=== PATIENT | female | born 1995 | race Caucasian/White ===

== ENCOUNTER 2022-11-13 08:08 | Outpatient (CLI) | payer OTHER ==
[2022-11-13 08:59] LABS: HCT - HEMATOCRIT 42.9 % (37.0-47.0); MEAN CORPUSCULAR HEMOGLOBIN 29.9 pg (27.0-31.0); MEAN CORPUSCULAR HGB CONC 32.6 g/dL (32.0-36.0); MEAN CORPUSCULAR VOLUME 91.5 fL (81.0-99.0); MEAN PLATELET VOLUME 12.5 fL (7.9-10.8); RED BLOOD COUNT 4.69 10^6/uL (4.20-5.40); RED CELL DISTRIBUTION WIDTH 13.2 % (12.0-15.0); WHITE BLOOD COUNT 8.3 x10^3/uL (4.8-10.8)
[2022-11-13 09:45] LABS: THYROID STIMULATING HORMONE 1.73 uIU/mL (0.34-5.60)
[2022-11-13 09:50] LABS: FERRITIN 19.7 ng/mL (11.0-306.8); FREE T4 (FREE THYROXINE) 0.87 ng/dL (0.58-1.64)
[2022-11-13 09:52] LABS: PROLACTIN 20.68 ng/mL
[2022-11-13 10:12] LABS: FOLLICLE STIMULATING HORMONE 5.27 mIU/mL
[2022-11-13 10:13] LABS: LUTEINIZING HORMONE 3.69 mIU/mL
[2022-11-13 21:19] LABS: ESTIMATED AVERAGE GLUCOSE 103 mg/dL (70-100); HEMOGLOBIN A1c% 5.2 % (4.27-6.07)
[2022-11-14 22:07] LABS: ESTRADIOL 25.9 pg/mL (.); PROGESTERONE 0.5 ng/mL (.)
[2022-11-16 14:08] LABS: FREE TESTOSTERONE(DIRECT) 9.1 pg/mL (0.0-4.2)
== END 2022-11-13 08:09 | disposition home or self-care (01) ==
LOC: LAB 08:08
PROVIDERS: ATTEND Nurse Practitioner
DX: L65.9 Nonscarring hair loss, unspecified (principal); Z71.89 Other specified counseling; Z83.3 Family history of diabetes mellitus
CPT/HCPCS: 36415; 82397; 82626; 82670; 82728; 83001; 83002; 83036; 83498; 84143; 84144; 84146; 84270; 84402; 84403; 84439; 84443; 85027

== ENCOUNTER 2022-11-22 16:17 | Outpatient (CLI) | payer OTHER ==
--- NOTE | 2022-11-23 10:13 | Ultrasound Report ---
PROCEDURE: Pelvic w/Transvaginal INDICATIONS: PELVIC PAIN TECHNIQUE: Real-time scanning was performed of the pelvic organs, with image documentation. Additional endovagi nal scanning was necessary due to incomplete visualization of the adnexal and endometrial structures by transabdominal scanning. COMPARISON: None. FINDINGS: Uterus: Uterus is anteverted and normal in size at 6.5 x 2.8 x 4.9 cm. The myometrium is homogeneou s. The endometrium measures 7.4 mm in combined thickness. Ovaries: The right ovary measures 2.4 x 1.2 x 1.3 cm, with a calculated ovarian volume of 2 cc. The left ovary measures 2.9 x 1.5 x 2.7 cm, with a calculated ovarian volume of 5.9 cc. The ovaries hav e a normal sonographic appearance. Less than 12 follicles can be seen in each ovary. No adnexal mas ses are seen. No cystic lesions measuring greater than 3 cm. Other: No pathologic free abdominal or pelvic fluid. IMPRESSION: Unremarkable pelvic ultrasound. Reviewed by: Bandar Bartlett on 11/23/2022 10:12 AM PDT Approved by: Bandar Bartlett on 11/23/2022 10:12 AM PDT Station ID: [id number]
== END 2022-11-22 16:18 | disposition home or self-care (01) ==
LOC: DI 16:17
PROVIDERS: ATTEND Nurse Practitioner
DX: R10.2 Pelvic and perineal pain (principal)

== ENCOUNTER 2022-12-04 10:29 | Outpatient (CLI) | payer OTHER ==
[2022-12-06 02:06] LABS: ESTRADIOL 83.4 pg/mL (.); PROGESTERONE 4.6 ng/mL (.)
== END 2022-12-04 10:30 | disposition home or self-care (01) ==
LOC: LAB 10:29
PROVIDERS: ATTEND Nurse Practitioner
DX: Z71.89 Other specified counseling (principal)
CPT/HCPCS: 36415; 82670; 84144

== ENCOUNTER 2023-05-29 08:00 | Outpatient (CLI) | payer OTHER ==
[2023-05-30 12:37] LABS: BILIRUBIN,URINE NEGATIVE (NEGATIVE); GLUCOSE, URINE (UA) NEGATIVE (NEGATIVE); KETONES,URINE (UA) NEGATIVE (NEGATIVE); LEUKOCYTE ESTERASE, URINE TRACE (NEGATIVE); NITRITE,URINE NEGATIVE (NEGATIVE); OCCULT BLOOD,URINE NEGATIVE (NEGATIVE); PROTEIN,URINE NEGATIVE (NEGATIVE); UROBILINOGEN,URINE 0.2 (NORMAL) E.U./dL (NORMAL)
[2023-05-30 12:49] LABS: BACTERIA,URINE Rare /HPF (None Seen); CLARITY,URINE CLEAR (CLEAR); RBC,URINE None Seen /HPF (0-5); SQUAMOUS EPITHELIAL CELL,UR FEW Squamous (<= Few); WBC,URINE 0-3 /HPF (0-5)
== END 2023-05-29 23:59 | disposition home or self-care (01) ==
LOC: LAB.WC 08:00
PROVIDERS: ATTEND Nurse Practitioner
DX: Z34.90 Encounter for supervision of normal pregnancy, unspecified, unspecified trimester (principal)
CPT/HCPCS: 81001; 87086

== ENCOUNTER 2023-06-07 15:35 | Outpatient (CLI) | payer OTHER ==
[2023-06-07 16:10] LABS: BASOPHILS % (AUTO) 0.3 %; EOSINOPHILS # (AUTO) 0.2 10^3/uL (0.0-0.7); EOSINOPHILS % (AUTO) 1.3 %; HGB - HEMOGLOBIN 13.5 g/dL (12.0-16.0); LYMPHOCYTES # (AUTO) 2.6 10^3/uL (1.5-3.5); LYMPHOCYTES % (AUTO) 21.8 %; MEAN CORPUSCULAR HEMOGLOBIN 29.5 pg (27.0-31.0); MEAN CORPUSCULAR HGB CONC 32.1 g/dL (32.0-36.0); MEAN CORPUSCULAR VOLUME 91.7 fL (81.0-99.0); MONOCYTES # (AUTO) 0.9 10^3/uL (0.0-1.0); MONOCYTES % (AUTO) 7.7 %; NEUTROPHILS # (AUTO) 8.2 10^3/uL (1.5-6.6); NEUTROPHILS % (AUTO) 68.6 %; PLT - PLATELET COUNT 202 10^3/uL (130-450); RED BLOOD COUNT 4.58 10^6/uL (4.20-5.40); RED CELL DISTRIBUTION WIDTH 13.2 % (12.0-15.0)
[2023-06-08 06:10] LABS: RPR Non Reactive (Non Reactive)
[2023-06-08 07:10] LABS: HBsAG SCREEN Negative (Negative)
[2023-06-08 09:10] LABS: VARICELLA-ZOSTER AB IGG <135 index (Immune >165)
[2023-06-08 20:08] LABS: HCV AB Non Reactive (Non Reactive); HIV SCREEN 4TH GENERATION Non Reactive (Non Reactive)
== END 2023-06-07 15:36 | disposition home or self-care (01) ==
LOC: LAB 15:35
PROVIDERS: ATTEND Nurse Practitioner
DX: Z34.90 Encounter for supervision of normal pregnancy, unspecified, unspecified trimester (principal)
CPT/HCPCS: 36415; 85025; 86592; 86762; 86787; 86803; 86850; 86900; 86901; 87340; 87389

== ENCOUNTER 2023-06-14 10:56 | Outpatient (CLI) | payer OTHER ==
--- NOTE | 2023-06-14 16:18 | Ultrasound Report ---
PROCEDURE: OB First Trimester INDICATIONS: POSITIVE TEST OUTSIDE/PRIOR DATING DATA: Last menstrual period (LMP): 04/19/2023. LMP-based estimated date of delivery (JOSE A): 01/24/2024. First dating scan (date and location): 06/14/2023. Estimated date of delivery (JOSE A) from first dating scan: 01/25/2024. TECHNIQUE: Real-time scanning was performed of the fetus and maternal pelvic organs, with image documentation. COMPARISON: None. FINDINGS: Intrauterine gestational sac present. Embryo: [place]-rump length measuring 1.53 cm, 7 weeks 6 days gestational age. Heart rate: 162 bpm. Other: Small perigestational fluid collection measuring at 2.5 x 1.9 x 0.8 cm. Measurement variability in dating: +/- 4 weeks by LMP, +/- 7 days by mean sac diameter (use before 6 weeks gestation if crown-rump length not able to be measured), +/- 5 days by crown-rump length (6-12 weeks gestation). Maternal organs: Ovaries appear within normal limits. Left ovarian cyst or corpus luteum measuring 1 .7 cm. IMPRESSION: 1. August living intrauterine at 7 weeks 6 days based on today's crown-rump length. 2. Small perigestational hemorrhage. Reviewed by: Gilberto Burns MD on 06/14/2023 4:17 PM PST Approved by: Gilberto Burns MD on 06/14/2023 4:17 PM PST Station ID: [id number]
== END 2023-06-14 10:57 | disposition home or self-care (01) ==
LOC: DI 10:56
PROVIDERS: ATTEND Nurse Practitioner
DX: O20.8 Other hemorrhage in early pregnancy (principal); Z3A.01 Less than 8 weeks gestation of pregnancy

== ENCOUNTER 2023-06-23 08:00 | Outpatient (CLI) | payer OTHER ==
[2023-06-23 20:52] LABS: CHLAMYDIA TRACHOMATIS DNA NEGATIVE (NEGATIVE); NEISSERIA GONORRHOEAE DNA NEGATIVE (NEGATIVE); TRICHOMONAS VAGINALIS DNA NEGATIVE (NEGATIVE)
== END 2023-06-23 23:59 | disposition home or self-care (01) ==
LOC: LAB.WC 08:00
PROVIDERS: ATTEND Nurse Practitioner
DX: Z11.3 Encounter for screening for infections with a predominantly sexual mode of transmission (principal)
CPT/HCPCS: 87491; 87591; 87661

== ENCOUNTER 2023-08-18 13:27 | Outpatient (CLI) | payer OTHER ==
[2023-08-22 21:07] LABS: DIA MOM 1.83 (.); DIA VALUE 281.09 pg/mL (.); DSR (BY AGE) 1 IN 805 (.); DSR (SECOND TRIMESTER) 1 IN 1161 (.); GEST. AGE ON COLLECTION DATE 17.3 WEEKS (.); HCG MOM 1.23 (.); HCG VALUE 41312 mIU/mL (.); INSULIN DEP DIABETES No (.); MATERNAL AGE AT EDD 28.7 yr (.); MULTIPLE GESTATION No (.); OPEN SPINA BIFIDA RISK 1 IN 8933 (.); RACE Caucasian (.); RESULTS Report (.); TEST RESULTS *Screen Negative* (.); TRISOMY 18 RISK Not increased (.); UE3 MOM 0.97 (.); UE3 VALUE 1.23 ng/mL (.); WEIGHT 146 lbs (.)
== END 2023-08-18 13:28 | disposition home or self-care (01) ==
LOC: LAB 13:27
PROVIDERS: ATTEND Nurse Practitioner
DX: Z34.90 Encounter for supervision of normal pregnancy, unspecified, unspecified trimester (principal)
CPT/HCPCS: 36415; 81511

== ENCOUNTER 2023-10-10 15:44 | Outpatient (CLI) | payer OTHER ==
[2023-10-10 16:23] LABS: THYROID STIMULATING HORMONE 1.25 uIU/mL (0.34-5.60)
== END 2023-10-10 15:45 | disposition home or self-care (01) ==
LOC: LAB 15:44
PROVIDERS: ATTEND Nurse Practitioner
DX: N95.1 Menopausal and female climacteric states (principal); R23.2 Flushing
CPT/HCPCS: 36415; 84443

== ENCOUNTER 2023-10-27 11:18 | Outpatient (CLI) | payer OTHER ==
[2023-10-27 12:39] LABS: HCT - HEMATOCRIT 40.2 % (37.0-47.0); HGB - HEMOGLOBIN 12.9 g/dL (12.0-16.0); MEAN CORPUSCULAR HEMOGLOBIN 29.9 pg (27.0-31.0); MEAN CORPUSCULAR HGB CONC 32.1 g/dL (32.0-36.0); MEAN CORPUSCULAR VOLUME 93.1 fL (81.0-99.0); MEAN PLATELET VOLUME 12.3 fL (7.9-10.8); RED BLOOD COUNT 4.32 10^6/uL (4.20-5.40); RED CELL DISTRIBUTION WIDTH 13.9 % (12.0-15.0); WHITE BLOOD COUNT 10.1 x10^3/uL (4.8-10.8)
== END 2023-10-27 11:19 | disposition home or self-care (01) ==
LOC: LAB 11:18
PROVIDERS: ATTEND Obstetrics & Gynecology
DX: Z34.90 Encounter for supervision of normal pregnancy, unspecified, unspecified trimester (principal); Z36.89 Encounter for other specified antenatal screening
CPT/HCPCS: 36415; 82950; 85027

== ENCOUNTER 2023-11-19 17:18 | Outpatient (CLI) | payer OTHER ==
[2023-11-19 17:38] VITALS: BP 121/67
[2023-11-19 18:52] VITALS: O2SAT 99
--- NOTE | 2023-11-19 19:52 | PROVIDER PROGRESS NOTE ---
- HPI Chief Complaint: Decreased movement Current : Current EDU 01/24/24 Gestation 30 Weeks and 4 Days 2 Para 0 Vital Signs Temperature 98.1 F 11/19/23 17:25 Heart Rate 95 11/19/23 17:25 Respiratory Rate 14 11/19/23 17:25 Blood Pressure 121/67 11/19/23 17:25 O2 Saturation 99 11/19/23 17:25 Temperature 98.1 F 11/19/23 17:26 Heart Rate 95 11/19/23 17:26 Respiratory Rate 14 11/19/23 17:26 Blood Pressure 121/67 11/19/23 17:26 O2 Saturation 99 11/19/23 17:25 If not protocol: Oxygen Flow, liters/minute - Procedures OB Procedure Performed: NST Diagnosis/Indication for NST: Decreased movement NST Procedure: NST Procedure Start Date 11/19/23 Start Time 17:50 Stop Time 18:18 Vibroacoustic Stimulation Used No Patient States Movement decreased FM Service Date of procedure: 11/19/23 Findings: Reactive for of 32 weeks gestation or more. NST tracing contains at least two heart rate accelerations that are at least 15 beats per minute above the baseline rate and lasting at least 15 seconds from onset to return to baseline within a twenty minute period. - Plan Plan: feeling her baby moving now. doing well. ready to go home. feels comfortable with this plan. keep appt as scheduled.
== END 2023-11-19 18:40 | disposition home or self-care (01) ==
LOC: WFO 17:18 → FBP 17:20 → WFO 18:40
PROVIDERS: ATTEND Obstetrics & Gynecology
DX: O36.8130 Decreased fetal movements, third trimester, not applicable or unspecified (principal); Z3A.30 30 weeks gestation of pregnancy
CPT/HCPCS: 59025; 99215

== ENCOUNTER 2023-12-20 18:56 | Outpatient (CLI) | payer OTHER ==
--- NOTE | 2023-12-22 12:08 | Ultrasound Report ---
PROCEDURE: OB Follow up INDICATIONS: UTERINE SIZE-DATE DISCREPANCY OUTSIDE/PRIOR DATING DATA: Last menstrual period (LMP): 04/19/2023. LMP-based estimated date of delivery (JOSE A): 01/24/2024. First dating scan (date and location): 06/14/2023. Estimated date of delivery (JOSE A) from first dating scan: 01/25/2024. The below data below was generated using the working JOSE A of 01/24/2024. TECHNIQUE: Real-time scanning was performed of the fetus, with image documentation and biometric measurements. Endovaginal scanning: Not performed. COMPARISON: OB ultrasound, 09/11/2023, 06/14/2023. FINDINGS: General: A single living intrauterine gestation is present. Presentation: Breech Placenta: Placental position is anterior, without previa. Amniotic fluid index: 15.7 cm, largest pocket 6.35 cm. heart rate: 166 beats per minute. Maternal cervical canal: Closed measuring 3.8 cm long; normal length is 2.5 cm or more. biometrics: Biparietal diameter: 8.79 cm; 35 weeks 4 days; 67.5%. Head circumference: 33.26 cm; 38 weeks 0 days; 85.6%. Abdominal circumference: 32.73 cm; 36 weeks 4 days; 92.3% Femur length: 6.93 cm; 35 weeks 4 days; 58.0%. Estimated gestational age from initial scan: 2924.2 g; 84.1%. Composite gestational age from present scan: 35 weeks 0 day Estimated weight and percentile: 36 weeks 3 days Measurement variability in biometric dating: +/- 10 days from 12-20 weeks gestation, +/- 2 weeks from 20-30 weeks gestation, +/- 3 weeks at 30 weeks gestation or more. Other: Not applicable. IMPRESSION: 1. A single living IUP redemonstrated. 2. Interval growth within normal limits. 3. The estimated weight is 2924.2 g, 84.1% for gestational age. 4. CRISTINA 15.7 cm. Reviewed by: Wilton Rizzo MD on 12/22/2023 11:06 AM OCTAVIANO Approved by: Wilton Rizzo MD on 12/22/2023 11:06 AM OKHUBERT Station ID: [id number]
== END 2023-12-20 18:57 | disposition home or self-care (01) ==
LOC: DI 18:56
PROVIDERS: ATTEND Nurse Practitioner
DX: O26.843 Uterine size-date discrepancy, third trimester (principal); Z3A.35 35 weeks gestation of pregnancy

== ENCOUNTER 2023-12-29 08:00 | Outpatient (CLI) | payer OTHER | END 2023-12-29 23:59 | disposition home or self-care (01) | LOC: LAB.WC 08:00 | PROVIDERS: ATTEND Nurse Practitioner | DX: Z36.85 Encounter for antenatal screening for Streptococcus B (principal) | CPT/HCPCS: 87797 ==

== ENCOUNTER 2024-01-09 09:47 | Outpatient (CLI) | payer OTHER ==
[2024-01-09] MEDS ORDERED: SODIUM CHLORIDE FLUSH 0.9% 10 ML SYRINGE IVP PRN (10:11)
[2024-01-09] MEDS ORDERED: fentaNYL 100 MCG/2 ML VIAL IVP PRN (10:11)
[2024-01-09] MEDS ORDERED: TERBUTALINE 1 MG/ML VIAL SUBQ PRN (10:11)
[2024-01-09] MEDS ORDERED: ONDANSETRON 4 MG/2 ML VIAL IVP PRN (10:11)
--- NOTE | 2024-01-09 10:16 | HISTORY & PHYSICAL EXAMINATION ---
Admit History - Mother's Labs Mother's Blood Type: positive: B Mother's RH: positive: Positive GBS: positive: Group B Step Negative Rubella Status: positive: Immune - Other Maternal History Other Maternal History: HPI: Patient is a 28-year-old -0-1-0 at 37 weeks 6 days gestation presented for external cephalic version. She was seen in the office last week and consented for the procedure for sophie breech presentation. She has good movement. No contractions, no leaking of fluid, no vaginal bleeding. All other symptoms reviewed and were negative except per HPI. Course LMP: 04/19/23 JOSE A by LMP: 01/24/24 US: 06/14/23 7+6 weeks cw dates Final JOSE A: 01/24/24 Breech presentation: Plan for ECV at 37 weeks. Pre- Weight:143.6 BMI: 26.36 Blood type: O+ Antibody: negative CBC: PLT 202 HCT 42.0 HGB 13.5 RUB: immune VZV: NOT immune HBsAg: negative HepC: N-R RPR/AB-EIA: N-R HIV: N-R PAP: 2021, normal GC/CT: Negative HSV:Denies in self and partner Genetic testin/9 QUAD- Screen Negative Covid: Declines 06/23 Flu: thinking about it 06/23 FAS: 09/06 Placenta: Anterior Cord: 3VC CRISTINA: 14.9cm 10/01 412.2g 75%tile 50gm OGCT:103 3HR GTT: TDAP:5/2 Breast Pump:5/ 3rd trimester H/H 12.9/40.2 PLT 180 GBS: 12/29/2023 Negative Delivery plan: Contraception: CONDOMS. No other control desired. PMH Unremarkable PSH No previous surgeries OB History -0-1-0 1. 05/12/2022, 5 weeks, SAB SH Denies tobacco, alcohol, drugs Family History Mother: Arthritis, migraines, hypertension, fibromyalgia Brother: Asthma Father: Anxiety, diabetes, hyperlipidemia, hypertension, thyroid disorder, migraines Allergies Sulfa: Rash Medications vitamins Magnesium supplements Physical exam: General: Alert, oriented, no acute distress Head: Normal cephalic atraumatic Eyes: PERRLA, extraocular motions intact. Respiratory: Normal rate of respiration. No accessory muscle use, normal respiratory effort. Cardiovascular: Regular rate and rhythm Abdomen: Gravid, nontender, nondistended Extremities: Normal range of motion Neuro: Oriented x3. Normal movements Psych: Appropriate mood and affect. Normal judgment and insight FHT: 140 bpm baseline, moderate variability, accelerations present, no decelerations. Reactive NST. Daisy: Irregular Bedside ultrasound: Cephalic presentation Assessment and plan 37 weeks gestation -Cephalic presentation today. No need for version -Reactive NST -Discharge home with routine - NST Procedure NST Procedure Start Time 17:50 Stop Time 18:18 Meds/Allgy - Allergies Allergies/Adverse Reactions: Allergies Allergy/AdvReac Type Severity Reaction Status Date / Time Sulfa (Sulfonamide Allergy Hives Verified 11/19/23 17:34 Antibiotics) Plan for Labor - Plan For Labor I expect patient to be DC'd or transferred within 96 hours.: Yes
[2024-01-09 10:53] VITALS: BP 110/77
[2024-01-09 10:55] LABS: BASOPHILS % (AUTO) 0.2 %; EOSINOPHILS # (AUTO) 0.1 10^3/uL (0.0-0.7); EOSINOPHILS % (AUTO) 0.9 %; HCT - HEMATOCRIT 40.3 % (37.0-47.0); HGB - HEMOGLOBIN 13.1 g/dL (12.0-16.0); LYMPHOCYTES # (AUTO) 1.9 10^3/uL (1.5-3.5); LYMPHOCYTES % (AUTO) 20.3 %; MEAN CORPUSCULAR HEMOGLOBIN 29.8 pg (27.0-31.0); MEAN CORPUSCULAR HGB CONC 32.5 g/dL (32.0-36.0); MEAN CORPUSCULAR VOLUME 91.6 fL (81.0-99.0); MEAN PLATELET VOLUME 13.3 fL (7.9-10.8); MONOCYTES # (AUTO) 0.8 10^3/uL (0.0-1.0); MONOCYTES % (AUTO) 8.4 %; NEUTROPHILS # (AUTO) 6.5 10^3/uL (1.5-6.6); NEUTROPHILS % (AUTO) 69.9 %; PLT - PLATELET COUNT 153 10^3/uL (130-450); RED CELL DISTRIBUTION WIDTH 14.2 % (12.0-15.0); WHITE BLOOD COUNT 9.3 x10^3/uL (4.8-10.8)
[2024-01-09] MEDS ORDERED: MINERAL OIL LIGHT 10 ML TOP SCH (11:00)
== END 2024-01-09 11:50 | disposition home or self-care (01) ==
LOC: WFO 09:47 → FBP 09:50 → WFO 11:50
PROVIDERS: ATTEND Obstetrics & Gynecology
DX: Z34.83 Encounter for supervision of other normal pregnancy, third trimester (principal)
CPT/HCPCS: 36415; 59025; 85025; 86850; 86900; 86901; 99214

== ENCOUNTER 2024-01-30 01:20 | Inpatient (IN) | payer OTHER ==
[2024-01-30] MEDS ORDERED: fentaNYL 100 MCG/2 ML VIAL IVP PRN (02:20)
[2024-01-30] MEDS ORDERED: TERBUTALINE 1 MG/ML VIAL SUBQ PRN (02:20)
[2024-01-30] MEDS ORDERED: CARBOPROST TROMETHAMINE 250 MCG/ML VIAL IM PRN (02:20)
[2024-01-30] MEDS ORDERED: miSOPROStoL 200 MCG TABLET PR PRN (02:20)
[2024-01-30] MEDS ORDERED: lidocaine 1% 20 ML MDV ID PRN (02:20)
[2024-01-30] MEDS ORDERED: miSOPROStoL 200 MCG TABLET BC PRN (02:20)
[2024-01-30] MEDS ORDERED: OXYTOCIN/SODIUM CHLORIDE 500 ML IV PRN (02:20)
[2024-01-30] MEDS ORDERED: METHYLERGONOVINE 0.2 MG/ML VIAL IM PRN (02:20)
[2024-01-30] MEDS ORDERED: SODIUM CHLORIDE FLUSH 0.9% 10 ML SYRINGE IVP PRN (02:20)
[2024-01-30] MEDS ORDERED: OXYTOCIN 10 UNIT/ML VIAL IM PRN (02:20)
--- NOTE | 2024-01-30 02:47 | HISTORY & PHYSICAL EXAMINATION ---
Admit History - Visit Reason Visit Reason: Contractions - : 2 Parity: 0 Premature: 0 Ectopic: 0 : 1 Care: positive: [facility] Risk/History: positive: None Complications This : positive: None Smoking Status: Never smoker - Mother's Labs Mother's Blood Type: positive: O Mother's RH: positive: Positive GBS: positive: Group B Step Negative Rubella Status: positive: Immune - Other Maternal History Other Maternal History: HPI: This 28 yo @ 40+ 6 weeks gestation by sure LMP and confirmed by 7+6 week ultrasound. She started to contract more regular about 16:00 yesterday and they became more intense about 23:00. She hadn't been able to rest at all over night as the contraction pain continued to become stronger and closer together. Now breathing through her contractions. Plans to try the birthing ball and labor chair soon. and Mother very supportive at bedside. She has been a patient of [facility] duration of her which has remained uncomplicated. Persistent breech presentation but spontaneous flip to v ertex on the day of her scheduled 37 week ECV. Denies urinary urgency or dysuria. No significant nausea or vomiting. ROS: All other symptoms reviewed and were negative except per HPI. LMP: 04/19/23 JOSE A by LMP: 01/24/24 US: 06/14/23 7+6 weeks cw dates Final JOSE A: 01/24/24 OB Hx: G1: SAB 05/14/2022 @ 5 weeks G2: Current. Medical Hx: No significant Surgical Hx: None Social Hx: Monogamous with male partner. Denies current use of alcohol, tobacco, marijuana or other recreational drugs. Family Hx: Denies family history of congenital anomalies, Cystic Fibrosis or chromosomal abnormalities. Family history of DM. Recent BP: 115/59 Labs: Pending. Last u/s EFW: 12/20/2023: 84.1% @ 36+3 weeks Total maternal weight gain: 28.4# Allergies: Sulfa Medications: PNV FOB: Ruben Pre- Weight:143.6 BMI: 26.36 Blood type: O+ Antibody: negative CBC: PLT 202 HCT 42.0 HGB 13.5 RUB: immune VZV: NOT immune HBsAg: negative HepC: N-R RPR/AB-EIA: N-R HIV: N-R PAP: 2021, normal GC/CT: Negative HSV:Denies in self and partner Genetic testin/9 QUAD- Screen Negative Covid: Declines 06/23 Flu: thinking about it 06/23 FAS: 09/06 Placenta: Anterior Cord: 3VC CRISTINA: 14.9cm 10/01 412.2g 75%tile 50gm OGCT:103 3HR GTT: TDAP:11/08 Breast Pump:11/08 3rd trimester H/H 12.9/40.2 PLT 180 GBS: 12/29/2023 Negative Delivery plan: Contraception: CONDOMS. No other control desired. Physical exam: Head: Normocephalic, atraumatic Heart: trace edema to lower extremities Lungs: No increased work of breathing or respiratory distress Abdomen gravid, soft, nontender. EFW 3600 FHR baseline 130, minimal- moderate variability, + accelerations, - decelerations Contractions palpate moderate every 2-4 minutes with soft resting tone SVE 4/80/-2, vertex (confirmed by BSUS) membranes intact Bilateral LE's no edema Mood is good. Assessment: 28 yo @ 40+6 weeks gestation by 7+6 wk U/S Early labor FHR 130 Cat 1 GBS NEG Plan: Admit to [facility] for Expectant management Intermittent monitoring until continuos monitoring indicated. Jacuzzi PRN. Nitrous oxide PRN. Epidural PRN Maternal Request. Anticipate . Patient verbally consents to my participation in her care in my role as a student nurse floorman. CHANCE Pinto, Student Nurse Commercial Lines Account Manager (Margaret Askew) - HPI Current EDU 01/24/24 Gestation 40 Weeks and 6 Days 2 Vital Signs Temperature 98.6 F 01/30/24 01:29 Heart Rate 80 01/30/24 01:29 Respiratory Rate 20 01/30/24 01:29 Blood Pressure 115/59 L 01/30/24 01:29 Temperature 98.4 F 01/30/24 04:21 Heart Rate 82 01/30/24 03:00 Respiratory Rate 18 01/30/24 04:21 Blood Pressure 106/62 01/30/24 03:00 O2 Saturation If not protocol: Oxygen Flow, liters/minute - NST Procedure NST Procedure Start Time 10:03 Stop Time 10:30 Meds/Allgy - Allergies Allergies/Adverse Reactions: Allergies Allergy/AdvReac Type Severity Reaction Status Date / Time Sulfa (Sulfonamide Allergy Hives Verified 11/19/23 17:34 Antibiotics) Physical - Abdominal Exam Vital Signs: Temp Pulse Resp BP Pulse Ox O2 Flow Rate 98.4 F 82 18 106/62 01/30/24 04:21 01/30/24 03:00 01/30/24 04:21 01/30/24 03:00 Plan for Labor - Plan For Labor I expect patient to be DC'd or transferred within 96 hours.: Yes - Plan For Labor Plan for Labor: I have seen and examined patient. agree with above. getting epidural now. bleeding more than average but mom and baby's vitals are normal. will continue to watch. Ampicillin running. Anticipate this am. (Cathie Fowler)
[2024-01-30] MEDS ORDERED: SODIUM CHLORIDE FLUSH 0.9% 10 ML SYRINGE IVP SCH (03:00)
[2024-01-30] MEDS: LACTATED RINGERS 1,000 ML IV PRN (04:00)
[2024-01-30 04:39] LABS: BASOPHILS % (AUTO) 0.2 %; EOSINOPHILS % (AUTO) 0.2 %; HCT - HEMATOCRIT 37.2 % (37.0-47.0); LYMPHOCYTES # (AUTO) 1.4 10^3/uL (1.5-3.5); LYMPHOCYTES % (AUTO) 11.7 %; MEAN CORPUSCULAR HEMOGLOBIN 29.6 pg (27.0-31.0); MEAN CORPUSCULAR HGB CONC 32.3 g/dL (32.0-36.0); MEAN CORPUSCULAR VOLUME 91.6 fL (81.0-99.0); MEAN PLATELET VOLUME 13.7 fL (7.9-10.8); MONOCYTES # (AUTO) 0.7 10^3/uL (0.0-1.0); MONOCYTES % (AUTO) 5.9 %; NEUTROPHILS % (AUTO) 81.6 %; PLT - PLATELET COUNT 146 10^3/uL (130-450); RED BLOOD COUNT 4.06 10^6/uL (4.20-5.40); RED CELL DISTRIBUTION WIDTH 14.7 % (12.0-15.0); WHITE BLOOD COUNT 12.3 x10^3/uL (4.8-10.8)
[2024-01-30] MEDS ORDERED: LIDOCAINE 2%-EPI 1:100000 20 ML MDV ONE (06:57)
[2024-01-30] MEDS ORDERED: ROPIVACAINE 0.2% 200 MG/100 ML BAG EP ONE (06:57)
[2024-01-30] MEDS ORDERED: ePHEDrine 50 MG/ML VIAL IVP PRN (08:09)
[2024-01-30] MEDS ORDERED: NALOXONE 0.4 MG/ML VIAL IVP PRN (08:09)
--- NOTE | 2024-01-30 08:09 | ANESTHESIA ---
Pre-Anesthesia VS, & Labs - Diagnosis Active Labor - Procedure labor Epidural Vital Signs: Temp Pulse Resp BP Pulse Ox O2 Flow Rate 36.9 C 82 18 106/62 01/30/24 04:21 01/30/24 03:00 01/30/24 04:21 01/30/24 03:00 Height: 5 ft 2 in Weight (kg): 78.018 kg Body Mass Index: 31.4 BMI Classification: Obese - Is Patient ?: Yes - Lab Results Current Lab Results: Laboratory Tests 01/30/24 04:30: WBC 12.3 H, RBC 4.06 L, Hgb 12.0, Hct 37.2, MCV 91.6, MCH 29.6, MCHC 32.3, RDW 14.7, Plt Count 146, MPV 13.7 H, Neut # (Auto) 10.0 H, Lymph # (Auto) 1.4 L, [place] # (Auto) 0.7, Eos # (Auto) 0.0, Baso # (Auto) 0.0, Absolute Nucleated RBC 0.00, Nucleated RBC % 0.0 01/30/24 04:30: Blood Type O POSITIVE, Antibody Screen NEGATIVE Fish Bones: 01/30/24 04:30 Home Medications and Allergies Active Medications Acetaminophen (Acetaminophen 500 Mg Tablet) 1,000 mg PO Q8H PRN PRN Reason: Mild Pain or Fever>38C(100.4F) Carboprost Tromethamine (Carboprost Tromethamine 250 Mcg/Ml Vial) 250 mcg IM .ONCE PRN PRN Reason: Hemorrhage Fentanyl (Fentanyl 100 Mcg/2 Ml Vial) 50 mcg IVP Q1H PRN PRN Reason: Severe Pain (score 7-10) Lactated Ringer's (Lr) 500 mls @ 999 mls/hr IV PRN PRN PRN Reason: distress/resuscitation Last Admin: 01/30/24 04:00 Dose: 999 mls/hr Oxytocin/Sodium Chloride (Pitocin/Sodium Chloride) 500 mls @ 999 mls/hr IV PRN PRN; Protocol PRN Reason: POST- HEMORR PREVENTION Tranexamic Acid (Tranexamic 1,000 Mg/100ml-Nacl) 1,000 mg in 100 mls @ 600 mls/hr IV Q30M PRN PRN Reason: EBL >1200mL and within 3hr Lidocaine HCl (Lidocaine 1% 20 Ml Mdv) 20 ml ID .ONCE PRN PRN Reason: PERINEAL REPAIR Stop: 02/02/24 02:20 Methylergonovine Maleate (Methylergonovine 0.2 Mg/Ml Vial) 0.2 mg IM .ONCE PRN PRN Reason: Hemorrhage Misoprostol (Misoprostol 200 Mcg Tablet) 600 mcg BC .ONCE PRN PRN Reason: Hemorrhage Misoprostol (Misoprostol 200 Mcg Tablet) 800 mcg FL .ONCE PRN PRN Reason: Hemorrhage Oxytocin (Oxytocin 10 Unit/Ml Vial) 10 unit IM .ONCE PRN PRN Reason: Step One if no IV access. Sodium Chloride (Sodium Chloride Flush 0.9% 10 Ml Syringe) 10 ml IVP PRN PRN PRN Reason: NEEDED PER PROVIDER ORDERS Sodium Chloride (Sodium Chloride Flush 0.9% 10 Ml Syringe) 10 ml IVP Q8H LENNIE Terbutaline Sulfate (Terbutaline 1 Mg/Ml Vial) 0.25 mg SUBQ .ONCE PRN PRN Reason: Tachystole Allergies/Adverse Reactions: Allergies Allergy/AdvReac Type Severity Reaction Status Date / Time Sulfa (Sulfonamide Allergy Hives Verified 11/19/23 17:34 Antibiotics) Anes History & Medical History - Medical History Smoking Status: Never smoker - Obstetrical History : 2 Parity: 0 Events: reports: None Complications: reports: None Exam General: Alert, Oriented x3, Cooperative Dental: WNL Mallampati classification: III Thyromental Distance: 4-6 cm Plan Anesthesia Type: Epidural Consent for Procedure(s) Verified and Reviewed: Yes Code Status: Attempt Resuscitation ASA classification: 2-Mild systemic disease Is this case an emergency?: No
[2024-01-30] MEDS: ONDANSETRON 4 MG/2 ML VIAL IVP PRN (08:57)
--- NOTE | 2024-01-30 10:48 | PHARMACY PROGRESS NOTE ---
- Best Possible Medication History Admit Date and Time: 01/30/24 0220 Processed by: Pharmacy Medications reviewed in ED?: No Medication History completed: Yes Patient Interview: Pt unable to participate Secondary Source(s): Insurance records (Medication Reconcilitation completed by Inventory TakerArnie, with assistance from RN.) As the person ultimately responsible for medication therapy, providers are able to order a medication from an existing home medication list in [facility] via the "Reconcile Routine" prior to Confirmation of that medication by senior technical support engineer. Such practice is discouraged except when the physician, in their clinical judgment, deems that a medical need exists for a medication without regard to previous use.
[2024-01-30] MEDS: ACETAMINOPHEN 500 MG TABLET PO PRN (14:53)
[2024-01-30] MEDS: OXYTOCIN/SODIUM CHLORIDE 500 ML IV SCH (15:29)
--- NOTE | 2024-01-30 16:53 | PROVIDER PROGRESS NOTE ---
<Margaret Askew - Last Filed: 01/30/24 16:32> Labor Progress Note - Uterine Monitoring Uterine Monitoring Mode: positive: External toco Contraction Frequency (min/apart): Irregular Contraction Intensity: positive: Mild to moderate Uterine Resting Tone: positive: Soft - Monitoring Monitor Mode: positive: External ultrasound Heart Rate Baseline: 165 Heart Rate Variability: positive: Moderate (6-25 bmp) Accelerations: positive: Present, 15x15 Decelerations: positive: None Strip Review: positive: Category II - Vaginal Exam Dilation (in cm): 6 Effacement (%): 100 Station: -2 Cervical Position: Midposition - Labor Progress Note Labor Progress Note/Additional Text: S: Very comfortable with her epidural. Her is supportive at the bedside. O: FHR 165s, an increase from previous baseline. Maternal temperature elevated 37.5. No significant decelerations. SVE 6/100/-2, vertex. A: 28yo @ 41 wks gestation by sure LMP and first trimester ultrasound. Active labor Postdates GBS negative. tachycardia P: Maintain epidural for labor anesthesia Continuos monitoring. 500cc fluid bolus, PO Tylenol for elevated temperature. Desires to augment labor with AROM @ 1507. Clear fluid. Begin oxytocin titrated to adequate uterine contractions according to unit protocol. Will encouraged rotation in bed on peanut ball after patient is comfortable with epidural. Anticipate . Reviewed plan of care with primary OBGYN. CHANCE Pinto, Student Nurse Engraver Tender <Cathie Fowler - Last Filed: 01/30/24 17:03> Labor Progress Note - Labor Progress Note Labor Progress Note/Additional Text: with Margaret as she reviews plan of care with patient and agree with above assessment and plan.
[2024-01-30] MEDS: ROPIVACAINE 0.2% 200 MG/100 ML BAG EP PRN (18:24)
[2024-01-30] MEDS: TRANEXAMIC ACID IN NACL 1,000 MG/100 ML BAG IV PRN (21:53)
[2024-01-30] MEDS ORDERED: HYDROCORTISONE 1% CREAM 28 GM TUBE PR PRN (22:19)
[2024-01-30] MEDS ORDERED: WITCH HAZEL/GLYCERIN 1 PAD TOP PRN (22:19)
--- NOTE | 2024-01-30 22:39 | DELIVERY NOTE ---
<Margaret Askew - Last Filed: 01/30/24 22:21> Delivery Note - Labor Labor: positive: Spontaneous, Augmented by ARM, Augmented by oxytocin - Infant Delivery Method Infant Delivery Method: positive: Spontaneous vaginal delivery - Presentation Presentation: positive: Vertex, HUMAIRA - left occiput anterior - Nuchal Cord Nuchal Cord: positive: Present, Reduced - Anesthetic Anesthetic Type: - Amniotic Fluid Description Amniotic Fluid Description: positive: Clear - Episiotomy Type Episiotomy Type: positive: None - Laceration Laceration: positive: 2nd degree, Vaginal, Other (periurethral) - Suture Suture Type: positive: Vicryl Suture Size: positive: 3-0 - Delivery Outcome Delivery Outcome: positive: Livebirth - [place]: positive: Placed in direct skin contact with mother, Bulb syringe, Stimulated, Warmed, Startex used [place] sex: positive: Female - Cord Cord: positive: 3 vessels - Placenta Placenta: positive: Intact, Spontaneous - Estimated Blood Loss Estimated Blood Loss (in cc): 450 - Delivery Comments (Free Text/Narrative) Delivery Comments (Free Text/Narrative): This 28 yo presented to L&D in spontaneous labor at 40+6 weeks gestation by sure LMP. Upon admission, she was 4/80/-2, intact. Vertex presentation by exam and confirmed by BSUS. GBS negative. Her labor progressed spontaneous until arrest of progression at 6cm. She was augmented by AROM @ 1507 and Oxtyocin was titrated per unit protocol for a maximum infusion of 10mu/min. FHR patter demon strated a variable baseline (but primarily 130's) and category I tracing prior to second stage. Epidural placed upon maternal request. Pushing started at @1852 with an anterior lip. She then progressed to complete/complete @ 1853. : Normal spontaneous vaginal delivery of a viable female on 01/30/2024 @ 2137 after approximately 3 hours of pushing. Prolonged time . Loose Nuchal x1, reduced. Compound delivery of left hand. The was placed on maternal abdomen, stimulated, dried and placed skin to skin. Apgars good. The umbilical cord was allowed to stop pulsating at which time it was doubly clamped by delivering provider and cut by FOB. 3VC. Cord blood was obtained. Fundal massage and gently cord traction applied for active management of the third stage, placenta delivered spontaneously and intact @ 2145. EBL 450cc. Placenta was WAS NOT sent to pathology. Pitocin administered via IV for hemostasis and added to the IV fluid and allowed to run freely. Uterine massage was performed until uterus was deemed firm. Inspection of the perineum noted a second degree vaginal wall laceration and a periurethral laceration requiring suture hemostatis. TXA administered. Repair by Dr. Fowler given proximity to urethra and clitoral [place]. See MD addendum. Needle and sponge counts were correct. Uterine fundus firm and there is no excessive bleeding. Family bonding beautifully. Both mother and baby are in stable condition. Patient verbalized consent for my participation in her delivery in my role as Student Nurse Mobile Phone Salesperson. CHANCE Pinto, Student Nurse Mobile Phone Salesperson <Cathie Fowler - Last Filed: 02/01/24 09:34> Delivery Note - Suture Suture Size: positive: 4-0 - Delivery Comments (Free Text/Narrative) Delivery Comments (Free Text/Narrative): I was present though out second and third stages of labor. Baby's head was about 1 cm out of the vaginal opening for about 15 min at the end of pushing. After delivery, vaginal opening was inspected and there was brisk bleeding from the clitoral artery. TXA was given and pitocin was declined by patient if uterus is firm, which it was. I used a 4-0 Vicryl suture and placed a stitch around the bleeder and bleeding slowed greatly. Red rubber catheter was placed in urethra for landmark. This was removed at end of repair. The tissue was gently sutured together to return anatomy and stop bleeding. There were bilateral labial lacerations as well. I put in a suture on the right but then later took it out as it was pulling oddly. The vaginal opening was then repaired. The tear was on both sides of the opening, not really into the perineum. This was repaired with 3-0 Vicryl Rapide to restore anatomy best I could. I explained to patient that voiding would probably be sore initially. And that the area that tore is very sensitive. I think it will heal without neurologic sequella. The above charting is reviewed from student REYNA Robles. I agree with above other than the giving of pitocin, which was not done.
[2024-01-30] MEDS: IBUPROFEN 800 MG TABLET PO SCH (23:12)
--- NOTE | 2024-01-31 08:00 | PROVIDER PROGRESS NOTE ---
Subjective - Prog Note Date Prog Note Date: 01/31/24 Prog Note Time: 07:58 - Subjective Pt reports feeling: Improved Subjective: Got only a few hours of sleep last night, but otherwise doing well. Comfortable WITHOUT narcotic pain management Most discomfort is muscle type soreness to epidural catheter site. Lochia appropriate. Denies heavy bleeding. Feels bleeding is mostly, light Ambulating. Tolerating oral intake. Diet: Regular. Voiding without difficulty. Passing flatus. Denies BM. Patient is bonding with baby in room Breast feeding: Baby was more awake and showed more interest yesterday. Today, more sleepy. No headaches. Denies feeling lightheaded, dizzy or excessively fatigued. Objective - Vital Signs/Intake & Output Reviewed Vital Signs: Yes Vital Signs: Vital Signs x48h Temp Pulse Resp BP 01/31/24 06:27 36.9 C 73 16 107/57 L 01/31/24 03:07 37.1 C 73 16 97/52 L 01/31/24 01:10 72 16 96/57 L 01/31/24 00:00 37.1 C 65 18 106/51 L Intake & Output: Intake & Output 01/28/24 01/29/24 01/30/24 01/31/24 23:59 23:59 23:59 23:59 Intake Total 2210.183 Output Total 1610 350 Balance 600.183 -350 - Objective General Appearance: positive: No acute distress Eyes Bilateral: positive: Normal inspection Respiratory: positive: No respiratory distress Cardiovascular: positive: Other (Trace edema to bilateral lower exteminities) Neurologic/Psychiatric: positive: Oriented x3 - Lab Results Fish Bones: 01/30/24 04:30 - Other Results/Comments Other Results/Comments: VZV: NON-immune Rubella: Immune. ABX Reporting Has patient been on IV antibiotics over the past 48 hours?: No Assessment/Plan - Problem List (1) Maternal varicella, non-immune Impression: Will order vaccine for administration prior to discharge (2) Vaginal delivery Impression: day 1. 28yo G1 now P1 s/p on 01/31/24 - Routine - Anticipate discharge tomorrow (3) Obstetrical laceration, second degree Impression: No significant bleeding Pain well managed with IBU, tylenol, ice and topicals. (4) Exclusive by mother Impression: Continued support and teaching. (5) Complication of anesthesia during labor and delivery, antepartum Impression: Concern for dura puncture at time of epidural placement Disclosed to patient at time of event and aware of potential for spinal headache, no sx at this time Maintaining adequate hydration. Some ache-type discomfort at epidural puncture site, but no specific or sharp pain. CHANCE Pinto, Student Nurse Dress Cap Maker
[2024-01-31 22:18] VITALS: O2SAT 100
[2024-02-01 06:33] VITALS: BP 100/52
[2024-02-01] MEDS: VARICELLA VACCINE LIVE/PF 1,350 UNIT/0.5 ML VIAL SUBQ ONE (09:41)
--- NOTE | 2024-02-01 10:13 | DISCHARGE SUMMARY ---
"Discharge Summary Admit Date: 01/30/24 Discharge Date: 02/01/24 Discharging Provider: Johnny Whitfield MD Code Status: Attempt Resuscitation Condition at Discharge: Good - DIAGNOSES Admission Diagnoses: SIUP @ 40w6d Labor Discharge Diagnoses with Status of Each Condition: Same, delivered - CONSULTS | PROCEDURES Procedures: with repair of vaginal wall and periurethral laceration, EBL 450cc - HOSPITAL COURSE Hospital Course: Benjamin is a 28 yo who presented in labor at 40w6d. She underwent AROM and pitocin augmentation and had an uncomplicated , EBL 450cc. course was uncomplicated. - ALLERGIES Allergies/Adverse Reactions: Allergies Allergy/AdvReac Type Severity Reaction Status Date / Time Sulfa (Sulfonamide Allergy Hives Verified 11/19/23 17:34 Antibiotics) - MEDICATIONS Home Medications: Ambulatory Orders Medication Instructions Recorded Confirmed Magnesium Oxide [Mag Ox] 400 mg PO DAILY 01/30/24 01/30/24 Pnv No.95/Ferrous Fum/Folic AC 1 tab PO DAILY 01/30/24 01/30/24 [ Tablet] Acetaminophen [Tylenol] 650 mg PO Q6H PRN #30 tab 02/01/24 Ibuprofen [Motrin] 600 mg PO Q6H PRN #30 tab 02/01/24 - PHYSICAL EXAM AT DISCHARGE Physical Exam Other/Comments: Gen: NAD, sleeping Chest: non labored respirations Abd: soft, non tender, fundus firm Ext: trace LE edema, no evidence of DVT - LABS Result Diagrams: 01/30/24 04:30 - FOLLOW UP Follow Up: [facility]. Reviewed home care instructions and medications. Patient counseled regarding signs and symptoms of infection, excessive bleeding, vaginal rest and activity restrictions. Will call clinic if additional support needed."
--- NOTE | 2024-02-01 11:03 | Labor Flowsheet ---
Labor Flowsheet Datetime Report Generated by CPN: 02/01/2024 11:02 Datetime: 02/01/2024 06:24 VITAL SIGNS NBP Sys/Izabella/Mean (mmHg): 100 : 52 : 62 Pulse: 99 SpO2 (%): 97 Datetime: 01/31/2024 00:00 Stage of : Recovery PAIN Pain Scale: 2 Datetime: 01/30/2024 23:00 Respirations: 16 Temperature (C): 37.1 Temperature Route: Oral Datetime: 01/30/2024 21:59 LaborFlag: Labor Datetime: 01/30/2024 21:57 Membranes Ruptured Date/Time: 01/30/2024 15:07 Amniotic Fluid Odor: Normal Datetime: 01/30/2024 21:30 Frequency (min): 1.5-2.5 Quality: Strong Duration (sec): 60-80 Pattern: Normal: <= 5 Contractions in 10 Minutes Resting Tone (Palpate): Relaxed Pitocin Checklist: At Least 1 Acceleration of 15 bpm x 15 Seconds in 30 Minutes or Adequate Variabi lity; No More than 1 Late Deceleration Occurred in Past 30 Minutes; No More than 2 Variable Decelerat ions > 60 Seconds in Duration and decreasing >60 bpm in 30 minutes; No More than 5 Uterine Contractio ns in 10 Minutes for any 20 Minute Interval; Uterus Palpates Soft between Contractions; IUPC Resting Tone less than 25 mmHg Monitor Interventions for FHR: Ultrasound Adjusted FHR Baseline Rate : 100 Variability: Moderate 6-25 bpm Accelerations: 15X15 Decelerations: Early Datetime: 01/30/2024 21:00 UTERINE ACTIVITY Monitor Mode: Palpation Resting Tone IUP (mmHg): 20 Intensity IUP (mmHg): 80 Hubert Units (mmHg): 300 ASSESSMENT A Monitor Mode: External US Actions for Decelerations: Hands and Knees Datetime: 01/30/2024 20:26 Medication Comments: IV bolus initated Datetime: 01/30/2024 20:25 Stage 2 Comments: pt in hands and knees Datetime: 01/30/2024 20:22 Pushing Position: Pushing Right Side Datetime: 01/30/2024 20:12 MEDICATIONS Pitocin (milliunits): Increased to @ 10 Datetime: 01/30/2024 20:05 Station: 2 Datetime: 01/30/2024 19:07 Patient Care Comments: Zuñiga removed with 300mL urine Datetime: 01/30/2024 19:01 Category: Category II Datetime: 01/30/2024 18:58 VAGINAL EXAM Dilatation (cm): 10.0 Effacement (%): 100 Exam by: K.Burckhardt, STATE MANAGER Datetime: 01/30/2024 18:51 STAGE 2 Pushing: Coached on Pushing; Urge to Push Pushing Progress: Descent with Pushing Datetime: 01/30/2024 18:47 Vaginal Exam Comments: anterior lip Datetime: 01/30/2024 18:45 Communication Comments: and CHANCE Ballesteros updated that pt is on 6 of pitocin and feel ing increase in pressure but declining to be checked at this time. Datetime: 01/30/2024 18:37 Pain Assessment Comments: pt breathing through cxtns. Pt states she just feels pressure. Declines S VE at this time. Datetime: 01/30/2024 17:15 PATIENT CARE Patient Position/Activity: Left Lateral Datetime: 01/30/2024 17:06 Monitor Interventions for UA: IUPC Inserted Datetime: 01/30/2024 17:03 Vaginal Bleeding: None Datetime: 01/30/2024 15:07 Membrane Status: Ruptured Membranes Rupture Method: Artificial Amniotic Fluid Color: Clear Amniotic Fluid Amount: Small Membrane Comments: AROM by CHANCE Ballesteros Datetime: 01/30/2024 14:53 Analgesics/Sedatives: Tylenol (mg) @ 1000 Datetime: 01/30/2024 14:25 Comments: UA and TOCO reapplied Datetime: 01/30/2024 13:19 Contraction Comments: pt states she feels minimal pressure with cxtn Datetime: 01/30/2024 12:30 ASSESSMENT C Variability: Moderate 6-25 bpm Datetime: 01/30/2024 10:31 Cervix, Consistency: Soft Cervix, Position: Anterior I/O Interventions: Zuñiga Cath Inserted Datetime: 01/30/2024 09:01 Antiemetics/Antacids: Zofran (mg) @ 4 Datetime: 01/30/2024 07:30 Epidural Procedure Other: Pump Started Datetime: 01/30/2024 07:27 Epidural Procedure: Loading Dose Datetime: 01/30/2024 07:08 Anesthesia Comments: numbing medication given. Datetime: 01/30/2024 07:02 Epidural Positioning: Sitting Datetime: 01/30/2024 07:00 FHR Baseline Changes: No Baseline Change Datetime: 01/30/2024 06:59 PROCEDURE TIME OUT Procedure Verify: Correct Patient Identity; Correct Side and Site are Marked; Accurate Procedure Co nsent Form; Agreement on Procedure to be Done; Correct Patient Position; Relevant Images and Results are Properly Labeled and Displayed; Addressed Need to Administer Antibiotics or Fluids for Irrigation ANESTHESIA Anesthesia Plans: Epidural Datetime: 01/30/2024 05:54 COMMUNICATION Communication: Provider at Bedside Datetime: 01/30/2024 04:00 Pain Coping: Breathing Through Contractions Comfort Measures: Breathing/Relaxation; Coaching; Back Rub Given; Family Support; Aromatherapy Datetime: 01/30/2024 03:13 Hygiene: Complete Bath Datetime: 01/30/2024 02:30 TEACHING Instructional Method: Verbal; Patient Instructed; Family/Support Person Instructed; Verbalized Unde rstanding Plan of Care: Plan of Care Discussed; Vaginal Delivery; Labor Unit Routine: [place] to Room; Call Key; Bed; Visiting Policy; Unit Personnel; Handwashing; M onitoring; Safety/Fall Risk Prevention; Bathroom Privileges; Medications Labor/Induction: Labor Stages; Activity Pain Management: Pain Scale/Goals; Comfort Measures Datetime: 01/30/2024 02:20 Pain Presence: Intermittent Pain Type: Cramping; Sharp; Contraction Pain Location: Abdomen; Back Pain Goal: 7 Pain Relief Measures: Comfort Measures MATERNAL ASSESSMENT Level of Consciousness: Alert DTR's/Clonus: DTRs 2+; No Clonus Headache: Denies Breath Sounds, Left: Clear and Equal Breath Sounds, Right: Clear and Equal Nausea/Vomiting: Present RUQ Epigastric Pain: Denies Datetime: 01/30/2024 02:08 Provider Reviewed Strip: Yes Strip Reviewed by: CHANCE Askew Provider Notified (Name): same as above Notification Reason: Status Update; Status; Labor Status; Membrane Status; Uterine Activity; Pain
== END 2024-02-01 10:30 | disposition home or self-care (01) | DRG 768 ==
LOC: WFO 01:20 → FBP 01:21 → WFO 02:19 → FBP 02:20
PROVIDERS: ADMIT Obstetrics & Gynecology; ATTEND Obstetrics & Gynecology
PROC: 10907ZC Drainage of Amniotic Fluid, Therapeutic from Products of Conception, Via Natural or Artificial Opening (ICD-10-PCS; principal; 2024-01-30)
PROC: 0UQJXZZ Repair Clitoris, External Approach (ICD-10-PCS; 2024-01-30)
PROC: 10E0XZZ Delivery of Products of Conception, External Approach (ICD-10-PCS; 2024-01-30)
PROC: 0KQM0ZZ Repair Perineum Muscle, Open Approach (ICD-10-PCS; 2024-01-30)
DX: O70.1 Second degree perineal laceration during delivery (principal); Z37.0 Single live birth; O69.81X0 Labor and delivery complicated by cord around neck, without compression, not applicable or unspecified; O32.6XX0 Maternal care for compound presentation, not applicable or unspecified; O99.214 Obesity complicating childbirth; Z3A.40 40 weeks gestation of pregnancy; O62.1 Secondary uterine inertia
CPT/HCPCS: 59409; 85025; 86850; 86900; 86901; 90716; 99215; A9270; J7120

== ENCOUNTER 2024-02-06 08:00 | Outpatient (CLI) | payer OTHER | END 2024-02-06 23:55 | disposition home or self-care (01) | LOC: LAB.WC 08:00 | PROVIDERS: ATTEND Obstetrics & Gynecology | DX: Z39.2 Encounter for routine postpartum follow-up (principal) | CPT/HCPCS: 87086 ==